=== PATIENT | female | born 1985 | race Caucasian/White ===

== ENCOUNTER → 2016-08-16 | Day surgery (SDC) | payer BC ==
[~2016-08-16] MED LIST: ADVIL200 M1 PO; LORTAB 10-5001 EACH PO; MELATONIN; PERCOCET5/325 PO; TRAMADOL HCL50 M1; VOLTAREN75 MG PO
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
== END | disposition home or self-care (01) ==
LOC: CCSC 08:08
DX: M50.122 Cervical disc disorder at C5-C6 level with radiculopathy (principal)
CPT/HCPCS: J1040; J2250

== ENCOUNTER → 2016-08-30 | Day surgery (SDC) | payer BC ==
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
== END | disposition home or self-care (01) ==
LOC: CCSC 07:58
DX: M50.122 Cervical disc disorder at C5-C6 level with radiculopathy (principal)
CPT/HCPCS: J1040; J2250

== ENCOUNTER → 2016-09-13 | Day surgery (SDC) | payer BC ==
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
== END | disposition home or self-care (01) ==
LOC: CCSC 08:15
DX: M50.122 Cervical disc disorder at C5-C6 level with radiculopathy (principal)
CPT/HCPCS: J1040; J2250